=== PATIENT | male | born 1965 | race Caucasian/White ===

== ENCOUNTER 2024-01-04 17:57 | Emergency (ER) | payer SELFPAY ==
[2024-01-04] MEDS ORDERED: CEFAZOLIN IV SCH (18:15)
[2024-01-04] MEDS ORDERED: WATER FOR INJECTION STERILE IV SCH (18:15)
[2024-01-04] MEDS ORDERED: fentaNYL 100 MCG/2 ML VIAL IV ONE (18:15)
[2024-01-04] MEDS ORDERED: Ondansetron 4 MG/2 ML VIAL IV ONE (18:15)
[2024-01-04 20:38] VITALS: BP 126/81
== END 2024-01-04 20:40 | disposition home or self-care (01) ==
LOC: ED 17:57
DX: S61.011A Laceration without foreign body of right thumb without damage to nail, initial encounter (principal); F17.210 Nicotine dependence, cigarettes, uncomplicated; Z23 Encounter for immunization; W31.89XA Contact with other specified machinery, initial encounter
CPT/HCPCS: 90715; A4570; J0690; J2405; J3010